=== PATIENT | male | born 1995 | race Two or more races ===

== ENCOUNTER 2020-04-05 11:27 | Emergency (ER) | payer OTHER ==
[~2020-04-05] VITALS: Ht 157.5 cm; Wt 63.5 kg
[2020-04-05] MEDS ORDERED: ATARAX25 MG (11:41)
[2020-04-05] MEDS ORDERED: ATARAX25 MG PO (14:56)
== END 2020-04-05 15:23 | disposition home or self-care (01) ==
LOC: ER 11:27
DX: B34.9 Viral infection, unspecified (principal); A90 Dengue fever [classical dengue]; Z03.818 Encounter for observation for suspected exposure to other biological agents ruled out

== ENCOUNTER 2022-11-11 00:13 | Emergency (ER) | payer OTHER ==
[~2022-11-11] VITALS: Ht 157.5 cm; Wt 68.0 kg
[~2022-11-11 00:13] MED LIST: ATARAX25 MG; ATARAX25 MG PO
[2022-11-11] MEDS ORDERED: ZESTRIL2.5 MG PO (00:35)
[2022-11-11] MEDS ORDERED: METOPROLOL SUCC50 MG (00:35)
[2022-11-11] MEDS ORDERED: DOLOGESIC-DF 51 EACH PO (04:50)
== END 2022-11-11 04:56 ==
LOC: ER 00:13
DX: R07.9 Chest pain, unspecified (principal); M54.9 Dorsalgia, unspecified; R53.81 Other malaise; I10 Essential (primary) hypertension; Z88.6 Allergy status to analgesic agent